=== PATIENT | male | born 1990 | race Hispanic/Latino ===

== ENCOUNTER 2019-06-23 23:42 | Emergency (ER) | payer OTHER ==
[2019-06-24 01:02] LABS: RAPID GROUP A STREP NEGATIVE (NEGATIVE)
== END 2019-06-24 01:25 | disposition home or self-care (01) ==
LOC: EDH 23:42
DX: B34.9 Viral infection, unspecified (principal)
CPT/HCPCS: 71046; 87804; 87880

== ENCOUNTER 2022-07-29 20:18 | Emergency (ER) | payer OTHER ==
[~2022-07-29] VITALS: Ht 182.9 cm; Wt 141.5 kg
[2022-07-29 21:01] VITALS: BP 155/96
[2022-07-29] MEDS ORDERED: ACET-2079 PO (21:25)
[2022-07-29] MEDS ORDERED: ACETAMINOPHEN WITH CODEINE 1 TAB TAB PO ONE (21:30)
[2022-07-29] MEDS ORDERED: KETOROLAC 30MG VIAL (30MG/ML) IM ONE (21:30)
== END 2022-07-29 21:52 | disposition home or self-care (01) ==
LOC: EDH 20:18
DX: K08.89 Other specified disorders of teeth and supporting structures (principal); K01.1 Impacted teeth
CPT/HCPCS: 99283; 96372; J1885